=== PATIENT | female | born 1965 | race Caucasian/White ===

== ENCOUNTER 2020-07-16 06:37 | Day surgery (SDC) | payer OTHER ==
[~2020-07-16] VITALS: Ht 162.6 cm; Wt 112.9 kg
[~2020-07-16 06:37] MED LIST: AMITRIPTYLINE H10 MG PO; ATORVASTATIN CA40 MG PO; CENTRUM SILVER1 EAC5 PO; JARDIANCE10 MG PO; METFORMIN HCL1000 MG PO; MOBIC7.5 MG PO; VITAMIN B125000 MCG PO
--- NOTE | 2020-07-16 08:09 | NUR ---
07/16/20 0809 Jazmine De 0802-PATIENT ARRIVED TO PACU ON 2L NC RR EVEN. PATIENT VERY DROWSY AROUSES TO VERBAL STIMULI DENIES PAIN OR NAUSEA. ABDOMEN SOFT. IVF INFUSING. ENCOURAGED TO PASS GAS. PATIENT DOZES BACK TO SLEEP.
--- NOTE | 2020-07-17 05:21 | OR ---
[facility] [address], [place] [address] Signed DATE OF OPERATION: 07/16/2020 SURGEON: Seth Stuart MD PREOPERATIVE DIAGNOSIS: Mother with colonic polyps at age 75 [address] [facility]. POSTOPERATIVE DIAGNOSES: 1. Mild to moderate left-sided diverticulosis. 2. Minimal internal and external hemorrhoids. 3. 4 mm polyps at 15 cm, 23 cm, 100 cm, 95 cm, 90 cm, 87 cm, 20 cm in proximal rectum. PROCEDURE: Colonoscopy with hot biopsy. ESTIMATED BLOOD LOSS: None. INDICATIONS: Raphael is a 55-year-old obese diabetic female, asked to see me for her initial screening colonoscopy. Her mother just had colonic polyps removed at age 75 [address] [facility]. She was asked to return in 5 years. No one else in the family has any colon cancer or polyps. Raphael has no lower GI complaints. I gave her a pamphlet on colonoscopy in the office and we had reviewed that together along with the risks including, but not limited to gas bloating, crampy abdominal pain, bleeding, perforation requiring surgery, and missed diagnosis. We also discussed the need for IV conscious sedation. She had expressed understanding and wished to proceed. PROCEDURE NOTE: Raphael was taken into our endoscopy suite and placed in the left lateral decubitus position. She was given IV sedation with 9 mg of Versed and 150 mcg of fentanyl to cover the case. A digital rectal exam was performed and she had small bilateral external hemorrhoids. She has good sphincter tone. No masses. The adult colonoscope was then introduced, advanced all around into the cecum under direct visualization of camera without difficulty. The above-mentioned polyps were easily removed with the help of hot biopsy forceps as the scope was withdrawn. She does have diverticula in the left colon. There were moderate in size, moderate in number, and scattered about. The scope was then retroflexed in the rectum and she has minimal internal hemorrhoid columns as well. After this, the gas was suctioned out and the colonoscope removed. Raphael tolerated the procedure quite well. Electronically Signed By: SETH STUART MD 07/17/20 0521 PATIENT NAME: RAPHAEL GRANADO OPERATIVE REPORT DATE OF : 67 REPORT #: [id number] PHYSICIAN: SETH STUART MD PCP: CAITLIN KATHLEEN MD REPORT IS CONFIDENTIAL AND NOT TO BE RELEASED WITHOUT AUTHORIZATION [address] [address] Signed RECOMMENDATIONS: I will see Raphael back in my office in 7 to 14 days to review her results. MD MARI Danielson/KEIKO /[id number] cc: MD Seth Quiroz MD Copies: SETH STUART MD ~ Electronically Signed By: SETH STUART MD 07/17/20 0521 PATIENT NAME: RAPHAEL GRANADO OPERATIVE REPORT DATE OF : 67 REPORT #: [id number] PHYSICIAN: SETH STUART MD PCP: CAITLIN KATHLEEN MD REPORT IS CONFIDENTIAL AND NOT TO BE RELEASED WITHOUT AUTHORIZATION
--- NOTE | 2020-07-22 12:49 | PATH ---
[facility] [address], [place] [address] Signed SPECIMEN(S): A DISTAL SIGMOID POLYP 15 CM SPECIMEN(S): B COLON POLYP 23 CM SPECIMEN(S): C TRANSVERSE POLYP 100 CM SPECIMEN(S): D COLON POLYP 95 CM SPECIMEN(S): E DESCENDING POLYP 90 CM SPECIMEN(S): F DESCENDING POLYP 87 CM SPECIMEN(S): G SIGMOID POLYP 20 CM SPECIMEN(S): H RECTAL POLYP SPECIMEN SOURCE: A. DISTAL SIGMOID POLYP 15 CM B. COLON POLYP 23 CM C. TRANSVERSE POLYP 100 CM D. COLON POLYP 95 CM E. DESCENDING POLYP 90 CM F. DESCENDING POLYP 87 CM G. SIGMOID POLYP 20 CM H. RECTAL POLYP CLINICAL HISTORY: Screening colonoscopy, family history of polyps. Postop: Diverticulosis, external hemorrhoids, polyps, internal hemorrhoids. MICROSCOPIC DESCRIPTION: Histologic sections of all submitted blocks are examined by light microscopy. These findings, together with the gross examination, support the pathologic diagnosis. FINAL PATHOLOGIC DIAGNOSIS: A. Colon, distal sigmoid polyp at 15 cm, polypectomy: - Cauterized colonic mucosa with no identified histopathologic abnormality. - Negative for dysplasia or malignancy. B. Colon, polyp at 23 cm, polypectomy: - Hyperplastic polyp. - Negative for dysplasia or malignancy. C. Colon, transverse polyp at 100 cm, polypectomy: - Hyperplastic polyp. - Negative for dysplasia or malignancy. D. Colon, polyp at 95 cm, polypectomy: - Hyperplastic polyp. - Negative for dysplasia or malignancy. E. Colon, descending polyp at 90 cm, polypectomy: PATIENT NAME: MIKIE GRANADO PATHOLOGY DATE OF : 67 REPORT #: [id number] PHYSICIAN: ROSE CALVERT PCP: CAITLIN KATHLEEN MD REPORT IS CONFIDENTIAL AND NOT TO BE RELEASED WITHOUT AUTHORIZATION [facility] [address], [place] [address] Signed - Hyperplastic polyp. - Negative for dysplasia or malignancy. F. Colon, descending polyp at 87 cm, polypectomy: - Hyperplastic polyp. - Negative for dysplasia or malignancy. G. Colon, sigmoid polyp at 20 cm, polypectomy: - Hyperplastic polyp. - Negative for dysplasia or malignancy. H. Rectum, polyp, polypectomy: - Hyperplastic polyp. - Negative for dysplasia or malignancy. COMMENT: Regarding specimen A: Multiple additional deeper levels were examined. NAL:cml:C2NR GROSS DESCRIPTION: Eight specimens are received in eight containers, labeled "TD." A. The specimen, labeled "TD, distal sigmoid polyp at 15 cm," is received in formalin and consists of one bauer soft tissue fragment that measures 0.2 cm in greatest dimension. The specimen is entirely submitted in cassette (A1). B. The specimen, labeled "TD, colon polyp at 23 cm," is received in formalin and consists of one bauer soft tissue fragment that measures 0.2 cm in greatest dimension. The specimen is entirely submitted in cassette (B1). C. The specimen, labeled "TD, transverse colon polyp at 100 cm," is received in formalin and consists of one bauer soft tissue fragment that measures 0.2 cm in greatest dimension. The specimen is entirely submitted in cassette (C1). D. The specimen, labeled "TD, colon polyp at 95 cm," is received in formalin and consists of one bauer soft tissue fragment that measures 0.1 cm in greatest dimension. The specimen is entirely submitted in cassette (D1). E. The specimen, labeled "TD, descending colon polyp at 90 cm," is received in formalin and consists of one bauer soft tissue fragment that measures 0.2 cm in greatest dimension. The specimen is entirely submitted in cassette (E1). F. The specimen, labeled "TD, descending colon polyp at 87 cm," is received in formalin and consists of one bauer soft tissue fragment that measures 0.3 cm in greatest dimension. The specimen is PATIENT NAME: MIKIE GRANADO PATHOLOGY DATE OF : 67 REPORT #: [id number] PHYSICIAN: ROSE CALVERT PCP: CAITLIN KATHLEEN MD REPORT IS CONFIDENTIAL AND NOT TO BE RELEASED WITHOUT AUTHORIZATION [facility] [address], [place] [address] Signed entirely submitted in cassette (F1). G. The specimen, labeled "TD, sigmoid colon polyp 20 cm," is received in formalin and consists of one bauer soft tissue fragment that measures 0.2 cm in greatest dimension. The specimen is entirely submitted in cassette (G1). H. The specimen, labeled "TD, rectal polyp," is received in formalin and consists of one bauer soft tissue fragment that measures 0.2 cm in greatest dimension. The specimen is entirely submitted in cassette (H1). JS (under the direct supervision of a pathologist) The Gross Description was prepared using a voice recognition system. The report was reviewed for accuracy; however, sound-alike word errors, addition and/or deletions may occur. If there is any question about this report, please contact Client Services. PERFORMING LABORATORY: The technical component was performed by [facility], [address] [place] [id number] (Cloud Architect: Lucinda Camargo MD; CLIA# [id number]). [facility], [address] [place] [address] (CLIA# [id number]). Diagnostician: Meron Ram MD Pathologist Electronically Signed 07/22/2020 Copies: ~ PATIENT NAME: MIKIE GRANADO PATHOLOGY DATE OF : 67 REPORT #: [id number] PHYSICIAN: ROSE CALVERT PCP: CAITLIN KATHLEEN MD REPORT IS CONFIDENTIAL AND NOT TO BE RELEASED WITHOUT AUTHORIZATION
== END 2020-07-16 09:00 | disposition home or self-care (01) ==
LOC: OPS 06:37 → DS 06:37 → OPS 06:45 → DS 06:45 → OPS 09:00 → DS 07-30 06:45
PROVIDERS: ATTEND Colon & Rectal Surgery
PROC: 0DBM8ZX Excision of Descending Colon, Via Natural or Artificial Opening Endoscopic, Diagnostic (ICD-10-PCS; 2020-07-16)
PROC: 0DBL8ZX Excision of Transverse Colon, Via Natural or Artificial Opening Endoscopic, Diagnostic (ICD-10-PCS; 2020-07-16)
PROC: 0DBN8ZX Excision of Sigmoid Colon, Via Natural or Artificial Opening Endoscopic, Diagnostic (ICD-10-PCS; 2020-07-16)
PROC: 0DBP8ZX Excision of Rectum, Via Natural or Artificial Opening Endoscopic, Diagnostic (ICD-10-PCS; principal; 2020-07-16 06:45)
DX: Z12.11 Encounter for screening for malignant neoplasm of colon (principal); K57.30 Diverticulosis of large intestine without perforation or abscess without bleeding; K63.5 Polyp of colon; K62.1 Rectal polyp; K64.8 Other hemorrhoids; K64.4 Residual hemorrhoidal skin tags; E11.9 Type 2 diabetes mellitus without complications; E78.5 Hyperlipidemia, unspecified; F17.210 Nicotine dependence, cigarettes, uncomplicated; E66.9 Obesity, unspecified; Z68.41 Body mass index [BMI] 40.0-44.9, adult; Z83.71 Family history of colonic polyps; Z79.84 Long term (current) use of oral hypoglycemic drugs; Z88.0 Allergy status to penicillin
CPT/HCPCS: 99153; G0500; J2250; J3010; J7121